=== PATIENT | male | born 1995 | race Two or more races ===

== ENCOUNTER 2016-06-13 13:32 | Emergency (ER) | payer BC, OTHER ==
[2016-06-13 13:41] VITALS: TEMP 98.1
--- NOTE | 2016-06-13 16:13 | EDPHY ---
H & P Time Seen by Provider: 06/13/16 15:31 HPI/ROS: CHIEF COMPLAINT: anxiety HISTORY OF PRESENT ILLNESS: 20 year old male presents to the emergency department requesting medication for his anxiety. Patient reports a history of anxiety and depression, is a psychiatrist at the [facility]. He started Zoloft 3 weeks ago and he reports this is helping with his depression though is unsure if it is helping with his anxiety. He takes 0.5 mg of clonazepam as needed for his anxiety, reports he has not had this for over a week. This morning his family of left as they were here for the holidays, was drinking coffee and felt a tightness in his chest, racing thoughts. Usually going to the gym helps this, he went to the [facility] and they were closed and he began to have a panic attack with rapid breathing and carpal pedal spasms. Patient denies suicidal ideations, homicidal ideations, auditory and visual hallucinations. Reports life stressors that have increased at home. He denies drug and alcohol use. Smoking Status: Former smoker Physical Exam: GEN: Awake, alert, oriented, no acute distress RESP: nl resp effort MSK: Normal appearing SKIN: No rash, no break in skin on exposed Psychiatric: Calm, cooperative, denies suicidal ideation, homicidal ideation, auditory or visual hallucinations. Constitutional: Initial Vital Signs Temperature (C) 36.7 C 06/13/16 13:39 Heart Rate 86 06/13/16 13:39 Respiratory Rate 18 06/13/16 13:39 Blood Pressure 145/83 H 06/13/16 13:39 O2 Sat (%) 95 06/13/16 13:39 O2 Delivery Mode Room Air Allergies/Adverse Reactions: No Known Allergies Allergy (Verified 05/24/16 05:01) Home Medications: Medication Instructions Recorded KLONOPIN 05/17/14 HYDROcodone/APAP 10/325 [[place] 1 - 2 each PO Q4-6PRN PRN #20 tab 10/12/15 10/325] HYDROcodone/APAP 10/325 [[place] 1 - 2 each PO Q4-6PRN PRN #20 tab 10/12/15 10/325] Antidepressant 06/13/16 MDM/Departure - MDM ED Course/Re-evaluation: 20-year-old male presents after an anxiety attack this morning, reports his symptoms have resolved which included racing thoughts, tightness in his chest. Patient reports he will call to schedule an appointment with his psychiatrist in 2 days, I discussed the importance of seeing a therapist as well. He agrees that this would be beneficial. The patient was discharged with a prepack of lorazepam. He is given return precautions for suicidal, worsening symptoms. - Depart Disposition: Home, Routine, Self-Care Clinical Impression: Anxiety Condition: Good Instructions: Anxiety (ED) Additional Instructions: Call on Tuesday to schedule appointment to be seen by your psychiatrist, I recommend seeing a therapist as well. Continue taking your Zoloft. Take 0.5-1 mg of lorazepam every 8 hours as needed for anxiety. Return to the emergency department for any worsening symptoms, suicidal thoughts, other questions or concerns. Referrals: Ana Tenorio MD [Primary Care Provider] - 1-2 days without fail
[2016-06-13] MEDS ORDERED: LORAZEPAM 1 MG PREPACK#4 BTL TAKEHOME ONE (16:17)
[2016-06-13 16:29] VITALS: BP 138/89; PULSE 83; RESP 16; O2SAT 96
== END 2016-06-13 16:28 | disposition home or self-care (01) ==
DX: F41.9 Anxiety disorder, unspecified (principal); Z87.891 Personal history of nicotine dependence

== ENCOUNTER 2016-06-20 20:39 | Emergency (ER) | payer BC ==
[2016-06-20 20:53] VITALS: BP 161/64; PULSE 98; RESP 18; TEMP 98.4; O2SAT 100
--- NOTE | 2016-06-20 20:54 | UCPHY ---
H & P Time Seen by Provider: 06/20/16 20:53 Patient Type: Established HPI/ROS: 20-year-old male seen here on for the same complaint and given short-term lorazepam at that time presents again requesting a refill of that lorazepam or a refill of his clonazepam. He sees a psychiatrist who prescribes clonazepam approximately 15 per month and is due to see that person this . He denies using other medications for his anxiety. He denies homicidal or suicidal ideation. Review of systems As per HPI-anxiety General no fever no chills no weakness HEENT no eye pain no eye discharge. No eye redness, no sore throat Respiratory no cough, no shortness of breath Cardiac no chest pain, no peripheral edema GI no abdominal pain, no diarrhea, no constipation, no nausea, no vomiting no flank pain, no hematuria, no dysuria Musculoskeletal no myalgias, no joint pain Heme no easy bruising, no easy bleeding Endo no polyuria, no polydipsia Skin no rashes, no pruritus Neuro no syncope, no dizziness, no headaches Psych is no suicidal ideation, no homicidal ideation Past Medical/Surgical History: anxiety Social History: denies alcohol or drug use Smoking Status: Never smoked Physical Exam: 20-year-old male Alert and oriented in no acute distress nontoxic appearance, afebrile Atraumatic normocephalic Neck no JVD Lungs clear to auscultation, no respiratory distress Heart regular rate and rhythm Extremities no cyanosis clubbing edema Constitutional: Initial Vital Signs Temperature (C) 36.9 C 06/20/16 20:51 Heart Rate 98 06/20/16 20:51 Respiratory Rate 18 06/20/16 20:51 Blood Pressure 161/64 H 06/20/16 20:51 O2 Sat (%) 100 06/20/16 20:51 O2 Delivery Mode Room Air Allergies/Adverse Reactions: No Known Allergies Allergy (Verified 05/24/16 05:01) Home Medications: Medication Instructions Recorded CLONAZEPAM 06/20/16 hydrOXYzine HCL [Hydroxyzine HCl] 50 mg PO Q8 PRN #30 tablet 06/20/16 Medical Decision Making ED Course/Re-evaluation: Patient seen and evaluated for anxiety Patient is prescribed clonazepam by his psychiatrist he states usually approximately 15 per month, for which she uses it on a p.r.n. basis. He was seen here 1 week ago on June 13 and given a very short term amount of lorazepam and at that time was to arrange an appointment with his psychiatrist to discuss further refills of his clonazepam. He has an appointment this June 24. I do not currently see the benefit of re-prescribing lorazepam and prefer for his primary psychiatrist to make plans with him regarding his clonazepam. I have offered him hydroxyzine as an alternative. He was given 50 mg p. o. to take when he arrived home for [facility], and a prescription hydroxyzine 50 mg p. o. q.8 hours p.r.n. anxiety, number 30. Impression Anxiety Plan Hydroxyzine Keep appointment this with your psychiatrist - Data Points Medications Given: Discontinued Medications Hydroxyzine HCl (Hydroxyzine Hcl) 50 mg PO ONCE ONE Stop: 06/20/16 21:08 Last Admin: 06/20/16 21:18 Dose: 50 mg Departure - Departure Disposition: Home, Routine, Self-Care Clinical Impression: Anxiety Condition: Good Instructions: Anxiety (ED) Referrals: [place] STATE,. [Primary Care Provider] - As per Instructions Prescriptions: hydrOXYzine HCL [Hydroxyzine HCl] 50 mg PO Q8 PRN #30 tablet PRN Reason: Anxiety - PQRS PQRS Measurement: na
[2016-06-20] MEDS ORDERED: hydrOXYzine HCL 50 MG TAB PO ONE (21:07)
[2016-06-20] MEDS ORDERED: hydrOXYzine HCL 25 MG TAB ONE (21:15)
== END 2016-06-20 21:20 | disposition home or self-care (01) ==
LOC: CED 20:39
DX: F41.9 Anxiety disorder, unspecified (principal)
CPT/HCPCS: 99214-PO; G0463-PO

== ENCOUNTER 2016-07-07 20:54 | Emergency (ER) | payer BC ==
[2016-07-07 21:03] VITALS: TEMP 98.4
[2016-07-07] MEDS ORDERED: NS 1,000 ML IV ONE (22:09)
[2016-07-07] MEDS ORDERED: HYDROmorphONE/DILAUDID 1 MG/ML SYR IVP ONE ×2 (22:09→23:06)
[2016-07-07] MEDS ORDERED: ONDANSETRON 4 MG/2 ML VIAL IVP ONE (22:09)
--- NOTE | 2016-07-07 22:09 | EDPHY ---
H & P Stated Complaint: pain control s/p right humerus ORIF on yesterday, good RUE CSMTs HPI/ROS: CHIEF COMPLAINT: Arm pain HISTORY OF PRESENT ILLNESS: postop day 1 from a right ORIF of a humeral fracture. This was performed in [place]. He was discharged home after a snowboarding injury with subsequent surgical repair. Did well until this morning around 12:00 p.m.. At that time he noted increasing pain. There is no increase in the swelling. No numbness or tingling of the elbow, forearm or hand. No wrist drop. Pain is severe despite taking morphine and Percocet mouth. Has no injury or fall on the arm. He has been wearing his splint and sling as prescribed. No pain in the ipsilateral hand or forearm. No other associated complaints or modifying factors. PRIOR ORTHO INJURIES: Right humeral fracture, July 06, 2016 ESTABLISHED ORTHOPEDIST: [facility] (Dr. Crowley) REVIEW OF SYSTEMS: Ten systems reviewed and are negative unless otherwise noted in the HPI EXAMINATION General Appearance: Alert, no distress Head: normocephalic, atraumatic Eyes: Pupils equal and round, no conjunctival pallor or injection ENT, Mouth: Mucous membranes moist Neck: Normal inspection Respiratory: No dyspnea or retractions. No distress Cardiovascular: Pulses normal throughout with 2+ symmetric radial and DP pulses. Brisk cap refill Gastrointestinal: No distention Neurological: A&O, sensory symmetric, strength symmetric Skin: Warm and dry, no rash . No erythema. Right upper extremity surgical incision:Clean dry and intact. No dehiscence. No surrounding erythema, purulence Extremities: Right elbow tenderness to palpation. Right brachium tender palpation. There is a surgical dressing and Ortho Glass splint in place. Range of motion of the right wrist is fully intact without wrist drop. The compartments of the forearm are soft. No erythema, pallor, cyanosis, pain of the forearm or hand. Psychiatric: Mood and affect normal DIFFERENTIAL DIAGNOSES: Including but not limited to Postoperative pain, DVT, edema, compartment syndrome MDM: 10:12 p.m. postoperative pain of the right arm status post ORIF on postop day 1. He has excellent signs of perfusion. There is no evidence of DVT or compartment syndrome on examination. We are providing pain medications, IV fluids. We will examine laboratory studies and evaluate further. 12:00 a.m. symptoms have significantly improved. The patient does have postoperative pain but is feeling better and wants to go home at this time. Laboratory studies are within normal limits given his postop day 1 status, Include a mildly elevated CK, which we have treated with IV fluid resuscitation. There is no DVT by ultrasound or examination. The x-ray was read as appropriate for postoperative state, but there may be a small piece of bone that is impinging on the brachial nerve. I discussed this with the patient and he actually wants to go home. He will contact Orthopedics in the morning to follow up with them. He remains neuro intact with no paresthesia or anesthesia. No wrist drop. All compartments are soft without evidence of compartment syndrome. Discharged home with instructions to continue his medications, and follow up the orthopedic surgeon or the orthopedic surgeon's group. He is comfortable with this plan we did discuss return to the ED precautions. ED Precautions: Worsening pain. Erythema, edema, cyanosis, pallor, paresthesia or anesthesia. SUPERVISION: This patient was independently evaluated without the aide of supervising physician. Source: Patient Exam Limitations: No limitations - Personal History Current Tetanus/Diphtheria Vaccine: Yes Current Tetanus Diphtheria and Acellular Pertussis (TDAP): Yes Tetanus Vaccine Date: less than 5 years - Medical/Surgical History Hx Asthma: No Hx Chronic Respiratory Disease: No Hx Diabetes: No Hx Cardiac Disease: No Hx Renal Disease: No Hx Cirrhosis: No Hx Alcoholism: No Hx HIV/AIDS: No Hx Splenectomy or Spleen Trauma: No Other PMH: sports induced asthma, anxiety. right humerus ORIF 06/2016 - Social History Smoking Status: Never smoked Constitutional: Initial Vital Signs Temperature (C) 98.4 F 07/07/16 21:00 Heart Rate 85 07/07/16 21:00 Respiratory Rate 14 07/07/16 21:00 Blood Pressure 134/85 H 07/07/16 21:00 O2 Sat (%) 96 07/07/16 21:00 O2 Delivery Mode Room Air Allergies/Adverse Reactions: No Known Allergies Allergy (Verified 05/24/16 05:01) Home Medications: Medication Instructions Recorded CLONAZEPAM 06/20/16 ACETAMINOPHEN 07/07/16 morphINE IR 15 mg (*) 07/07/16 hydrOXYzine HCL [Hydroxyzine HCl] 50 mg PO Q6 #20 tablet 07/08/16 Medical Decision Making - Data Points Laboratory Results: Laboratory Results 07/07/16 22:10 07/07/16 22:10 07/07/16 22:10 WBC 9.99 H 10^3/uL (3.80-9.50) RBC 4.06 L 10^6/uL (4.40-6.38) Hgb 12.9 L g/dL (13.7-17.5) Hct 37.8 L % (40.0-51.0) MCV 93.1 fL (81.5-99.8) MCH 31.8 pg (27.9-34.1) MCHC 34.1 g/dL (32.4-36.7) RDW 12.1 % (11.5-15.2) Plt Count 232 10^3/uL (150-400) MPV 9.3 fL (8.7-11.7) Neut % (Auto) 66.8 % (39.3-74.2) Lymph % (Auto) 20.4 % (15.0-45.0) [place] % (Auto) 11.4 % (4.5-13.0) Eos % (Auto) 0.8 % (0.6-7.6) Baso % (Auto) 0.3 % (0.3-1.7) Nucleat RBC Rel Count 0.0 % (0.0-0.2) Absolute Neuts (auto) 6.67 H 10^3/uL (1.70-6.50) Absolute Lymphs (auto) 2.04 10^3/uL (1.00-3.00) Absolute Monos (auto) 1.14 H 10^3/uL (0.30-0.80) Absolute Eos (auto) 0.08 10^3/uL (0.03-0.40) Absolute Basos (auto) 0.03 10^3/uL (0.02-0.10) Absolute Nucleated RBC 0.00 10^3/uL (0-0.01) Immature Gran % 0.3 % (0.0-1.1) Immature Gran # 0.03 10^3/uL (0.00-0.10) Sodium 141 mEq/L (134-144) Potassium 3.9 mEq/L (3.5-5.2) Chloride 103 mEq/L (97-110) Carbon Dioxide 29 mEq/l (22-31) Anion Gap 9 mEq/L (8-16) BUN 11 mg/dL (7-23) Creatinine 0.8 mg/dL (0.7-1.3) Estimated GFR > 60 Glucose 99 mg/dL (70-100) Calcium 8.8 mg/dL (8.5-10.4) Creatine Kinase 712 H IU/L (0-224) CK-MB (CK-2) Fraction 5.74 H ng/mL (0-3.19) CK-MB (CK-2) % 0.8 % (0.0-4.0) Creatine Kinase Interp NEGATIVE (NEGATIVE) Medications Given: Discontinued Medications Hydromorphone HCl (Dilaudid) 1 mg IVP EDNOW ONE Stop: 07/07/16 22:10 Last Admin: 07/07/16 22:20 Dose: 1 mg Hydromorphone HCl (Dilaudid) 1 mg IVP EDNOW ONE Stop: 07/07/16 23:07 Last Admin: 07/07/16 23:10 Dose: 1 mg Sodium Chloride (Ns) 1,000 mls @ 0 mls/hr IV ONCE ONE PRN Reason: Wide Open Stop: 07/07/16 22:10 Last Admin: 07/07/16 22:20 Dose: 1,000 mls Ondansetron HCl (Zofran) 4 mg IVP EDNOW ONE Stop: 07/07/16 22:10 Last Admin: 07/07/16 22:20 Dose: 4 mg Departure - Departure Disposition: Home, Routine, Self-Care Clinical Impression: Postoperative pain of extremity Condition: Good Instructions: Arm Pain (ED) Additional Instructions: follow-up with primary surgeon or the surgeon listed on her discharge paper work tomorrow for definitive care. Return to ER for worsening pain, numbness, tingling, wrist drop or concern Referrals: OUT OF STATE,. [Primary Care Provider] - As per Instructions Lowell Lundberg MD [Medical Doctor] - 1 day without fail Prescriptions: hydrOXYzine HCL [Hydroxyzine HCl] 50 mg PO Q6 #20 tablet
[2016-07-07 22:21] LABS: % IMMATURE GRANULYOCYTES 0.3 % (0.0-1.1); ABSOLUTE IMMATURE GRANULOCYTES 0.03 10^3/uL (0.00-0.10); ADD DIFF? NO; ADD MORPH? NO; ADD SCAN? NO; ATYPICAL LYMPHOCYTE FLAG 0 (0-99); FRAGMENT RBC FLAG 0 (0-99); HEMATOCRIT 37.8 % (40.0-51.0); HEMOGLOBIN 12.9 g/dL (13.7-17.5); LEFT SHIFT FLG 0 (0-99); LIPEMIA HEMOLYSIS FLAG 90 (0-99); MEAN CELL HEMOGLOBIN 31.8 pg (27.9-34.1); MEAN CELL HEMOGLOBIN CONCENTR. 34.1 g/dL (32.4-36.7); MEAN CELL VOLUME 93.1 fL (81.5-99.8); MEAN PLATELET VOLUME 9.3 fL (8.7-11.7); PLATELET CLUMPS FLAG 0 (0-99); PLATELET COUNT 232 10^3/uL (150-400); RED BLOOD CELL COUNT 4.06 10^6/uL (4.40-6.38); RED CELL DISTRIBUTION WIDTH 12.1 % (11.5-15.2)
[2016-07-07 22:36] LABS: ANION GAP 9 mEq/L (8-16); CALCIUM 8.8 mg/dL (8.5-10.4); CARBON DIOXIDE 29 mEq/l (22-31); CHLORIDE 103 mEq/L (97-110); CREATININE 0.8 mg/dL (0.7-1.3); GLOMERULAR FILTRATION RATE > 60; GLUCOSE 99 mg/dL (70-100); POTASSIUM 3.9 mEq/L (3.5-5.2); SODIUM 141 mEq/L (134-144)
[2016-07-07 23:00] LABS: CREATINE KINASE-MB FRACTION 5.74 ng/mL (0-3.19)
[2016-07-07 23:09] LABS: CK-MB INTERPRETATION NEGATIVE (NEGATIVE)
[2016-07-07 23:11] VITALS: RESP 16
--- NOTE | 2016-07-07 23:50 | DX ---
Right humerus, 2 views. Today. History: Postop. Findings: Surgical features of ORIF of a distal right humeral fracture identified. There is a butterf ly fragment along the medial aspect of the right humerus at the proximal level of the sideplate. The proximal humerus is normal in appearance. Impression: 1. Prior lateral sideplate ORIF distal right humeral fracture. There is a slightly displaced butterfl y fragment present medially.
--- NOTE | 2016-07-07 23:53 | US ---
Ultrasound Venous Duplex/Doppler right upper extremity. History: Pain after ORIF humeral fracture. Findings: Ultrasound venous duplex and Doppler imaging of the internal jugular, innominate, subclavi an, axillary, basilic, brachial, cephalic, radial, ulnar veins demonstrates normal compressibility, c olor flow, and Doppler flow without deep venous thrombosis. Impression: No deep venous thrombosis right upper extremity.. Results called to the emergency room at the time of the examination
[2016-07-08] MEDS ORDERED: AMOXICILLIN/CLAVULANATE POT 875/125 MG TAB PO ONE (00:03)
[2016-07-08] MEDS ORDERED: ATENOLOL 25 MG TAB PO ONE (00:03)
[2016-07-08 00:42] VITALS: BP 127/66; PULSE 78; O2SAT 95
== END 2016-07-08 00:41 | disposition home or self-care (01) ==
DX: G89.18 Other acute postprocedural pain (principal); M79.601 Pain in right arm; J45.909 Unspecified asthma, uncomplicated
CPT/HCPCS: 96374; J1170; J2405

== ENCOUNTER 2016-10-24 14:00 | Emergency (ER) | payer BC ==
[2016-10-24 14:13] VITALS: BP 117/80; PULSE 104; RESP 22; TEMP 98.2; O2SAT 94
--- NOTE | 2016-10-24 14:21 | EDPHY ---
H & P Stated Complaint: ?withdrawal from benzos/anxiety and thinks had a seizure tuesday Time Seen by Provider: 10/24/16 14:20 - Personal History Current Tetanus/Diphtheria Vaccine: Yes Tetanus Vaccine Date: less than 5 years - Medical/Surgical History Hx Asthma: No Hx Chronic Respiratory Disease: No Hx Diabetes: No Hx Cardiac Disease: No Hx Renal Disease: No Hx Cirrhosis: No Hx Alcoholism: No Hx HIV/AIDS: No Hx Splenectomy or Spleen Trauma: No Other PMH: sports induced asthma, anxiety. right humerus ORIF 06/2016. anxiety - Social History Smoking Status: Never smoked Constitutional: Initial Vital Signs Temperature (C) 36.8 C 10/24/16 14:10 Heart Rate 104 H 10/24/16 14:10 Respiratory Rate 22 H 10/24/16 14:10 Blood Pressure 117/80 10/24/16 14:10 O2 Sat (%) 94 10/24/16 14:10 O2 Delivery Mode Room Air Allergies/Adverse Reactions: No Known Allergies Allergy (Verified 10/24/16 14:09) Home Medications: Medication Instructions Recorded CLONAZEPAM 06/20/16 ACETAMINOPHEN 07/07/16 morphINE IR 15 mg (*) 07/07/16 hydrOXYzine HCL [Hydroxyzine HCl] 50 mg PO Q6 #20 tablet 07/08/16 ALPRAZolam 10/24/16 Zoloft 100mg (*) 10/24/16 Medical Decision Making ED Course/Re-evaluation: CHIEF COMPLAINT: Out of anxiety medications, seizure . HISTORY OF PRESENT ILLNESS: This 21 year old male presents today complaining of withdrawal symptoms secondary to discontinuation of his benzodiazepines. He states he is between care providers for management of his anxiety and depression, as he has recently lost his psychiatric care. He had been taking BuSpar 10mg bid for his anxiety but he did not feel much improvement in his symptoms, and noted nausea. He discontinued this medication, and was prescribed Klonopin and Xanax instead. He ran out of these medications and he began to note side effects he suspected were related to withdrawal. He obtained 1mg non-prescription Xanax one week ago. , three days ago, he states he had a seizure, which he attributes to withdrawal from the benzodiazepines. He denies any other associated symptoms or traumatic incidents. He would like to discontinue all psychiatric medications as soon as he can. REVIEW OF SYSTEMS: A 10 point review of systems was performed and is negative with the exception of the elements mentioned in the history of present illness. PHYSICAL EXAM: HR, BP, O2 Sat, RR. Temp noted General Appearance: Alert, well hydrated, appropriate, and non-toxic appearing. Head: Atraumatic without scalp tenderness or obvious injury Eyes: Pupils equal, round, reactive to light and accommodation, EOMI, no trauma , no injection. Nose: Atraumatic, no rhinorrhea, clear. Throat: Mucus membranes moist. Neck: Supple Respiratory: No retractions, no distress, no wheezes, and no accessory muscle use. Lungs are clear to auscultation bilaterally. Cardiovascular: Regular rate and rhythm, no murmurs, rubs, or gallops. Good capillary refill all extremities. Gastrointestinal: Abdomen is soft, nontender, non-distended, no masses, no rebound, no guarding, no peritoneal signs. Musculoskeletal: Normal active ROM of all extremities, atraumatic. Neurological: Alert, appropriate, and interactive. Non-focal neuro exam. Skin: No rashes, good turgor, no nodules on palpation. Past medical history: Anxiety, depression. Past surgical history: Denies Family history: Noncontributory Social history: [employer] alumni. Has an existing referral to a psychiatrist through his mother. DIFFERENTIAL DIAGNOSIS: The differential diagnosis for the patient's seizure included but was not limited to benzodiazepine withdrawal, electrolyte abnormality, alcohol withdrawal, medication noncompliance, head injury, [employer] structural abnormality, and break through seizure. MEDICAL DECISION MAKING: This patient is a 21 year old male presenting today three days post-reported seizure and concerned about lack of medication for his anxiety and depression. He is currently between providers and discontinued his benzodiazepines suddenly. I feel the safest course is to prescribe him a tapering course of Klonopin to prevent future seizures. I have stressed the importance of strictly following the taper schedule. He is to follow up with a psychiatrist to manage his anxiety and depression safely, and a neurologist to rule out other causes of seizure. The patient will be discharged home in good condition, and is comfortable with the discharge instructions discussed above. Departure - Departure Disposition: Home, Routine, Self-Care Clinical Impression: Anxiety Benzodiazepine withdrawal Qualifiers: Complication of substance-induced condition: uncomplicated Qualified Code(s): F13.230 - Sedative, hypnotic or anxiolytic dependence with withdrawal, uncomplicated Condition: Good Instructions: Clonazepam (By mouth), Anxiety (ED) Additional Instructions: 1. Strictly follow the dose tapering schedule for the Klonopin. It is imperative you follow this closely. 2. Follow up with a psychiatrist to determine the best dose of BuSpar for you. I suspect you need a much higher dose to treat your anxiety and depression. We have referred you to local mental health services if needed. 3. Do not drive, climb ladders, or perform other activities that could put yourself or others at risk in case of another seizure until cleared by neurology. Follow up with a neurologist this week to rule out other possible seizure causes. 4. Return to the ED for recurrence of seizures or other worsening of condition. Referrals: NONE *PRIMARY CARE P,. [Primary Care Provider] - As per Instructions [facility],. [Clinic] - As per Instructions Report Scribed for: Joaquin Sullivan Report Scribed by: Elin Damian Date of Report: 10/24/16 Time of Report: 15:00
== END 2016-10-24 14:51 | disposition home or self-care (01) ==
DX: F41.9 Anxiety disorder, unspecified (principal); F13.230 Sedative, hypnotic or anxiolytic dependence with withdrawal, uncomplicated; J45.909 Unspecified asthma, uncomplicated

== ENCOUNTER → 2016-11-30 | Outpatient (CLI) | payer BC ==
--- NOTE | 2016-11-30 19:02 | CPEEG ---
[f rep st] ELECTROENCEPHALOGRAM DATE OF STUDY: 11/30/2016 INTERPRETATION: Normal EEG during wakefulness and sleep. There were no potentially epileptogenic a bnormalities present in the recording. REPORT: This EEG contains 10 Hz alpha to the posterior head regions. There was no abnormal activat ion at rest, during photic stimulation or hyperventilation. The background activity was normal and symmetric. The patient became drowsy and fell into sustained sleep during the study. There was no abnormal activation during drowsiness, sleep, or during times of arousal. /[id number]/[id number]
== END ==
LOC: FCPNEURO 14:49
PROVIDERS: ATTEND Psychiatry & Neurology Neurology
DX: R56.9 Unspecified convulsions (principal)